=== PATIENT | male | born 1980 | race Caucasian/White ===

== ENCOUNTER 2016-08-31 16:26 | Emergency (ER) ==
[2016-08-31 16:36] VITALS: BP 130/78; TEMP 101.8; BMI 28.0
[2016-08-31] MEDS ORDERED: SODIUM CHLORIDE 1,000 ML IV STA (16:43)
[2016-08-31 16:51] LABS: BASOPHILS % (AUTO) 0.2 % (0.0-3.0); EOSINOPHILS % (AUTO) 0.3 % (0.0-7.0); HEMATOCRIT 45.6 % (42.0-52.0); HEMOGLOBIN 15.4 g/dl (14.0-18.0); IMMATURE GRANULOCYTE % (AUTO) 0.6 % (0.0-5.0); LYMPHOCYTES % (AUTO) 6.2 (10.0-50.0); MEAN CORPUSCULAR HEMOGLOBIN 30.3 pg (27.0-31.0); MEAN CORPUSCULAR HGB CONC 33.8 (31.8-35.4); MEAN CORPUSCULAR VOLUME 89.8 fl (80.0-94.0); MONOCYTES # (AUTO) 0.7 K/uL (0.4-2.0); MONOCYTES % (AUTO) 4.3 (0-10); NEUTROPHILS # (AUTO) 13.7 K/ul (2.0-6.9); NEUTROPHILS % (AUTO) 88.4; PLATELET COUNT 265 10^3/uL (140-440); RED BLOOD COUNT 5.08 10^6/ul (4.70-6.10); WHITE BLOOD COUNT 15.44 K/ul (4.2-10.2)
[2016-08-31 17:09] LABS: ALBUMIN/GLOBULIN RATIO 1.21; ANION GAP 14.6; BILIRUBIN,TOTAL 0.6 mg/dL (0.00-1.20); BUN/CREATININE RATIO 14.43; CALCIUM 9.1 mg/dL (8.2-10.2); CREATININE 0.97 mg/dL (0.60-1.10); POTASSIUM 3.6 mmol/L (3.5-5.1); TOTAL PROTEIN 7.3 g/dL (6.4-8.2)
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
[2016-08-31 17:47] LABS: FLU INTERNAL QC INTERNAL QC VALID; RAPID FLU A NEGATIVE (NEGATIVE); RAPID FLU B NEGATIVE (NEGATIVE)
== END 2016-08-31 18:40 | disposition home or self-care (01) ==
LOC: ED 16:26
DX: K52.9 Noninfective gastroenteritis and colitis, unspecified (principal); F17.210 Nicotine dependence, cigarettes, uncomplicated
CPT/HCPCS: 36415; 80053; 85025; 87651; 87804; 87880; 96360; 99283

== ENCOUNTER 2016-10-03 15:54 | Emergency (ER) ==
[2016-10-03 15:54] VITALS: BMI 28.0
[2016-10-03 15:56] VITALS: BP 144/94; TEMP 98.3
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
== END 2016-10-03 16:26 | disposition home or self-care (01) ==
LOC: ED 15:54
DX: K08.89 Other specified disorders of teeth and supporting structures (principal); K02.7 Dental root caries; F17.210 Nicotine dependence, cigarettes, uncomplicated
CPT/HCPCS: 99282

== ENCOUNTER 2016-10-17 15:28 | Emergency (ER) ==
[2016-10-17 15:33] VITALS: BP 128/85; TEMP 98.1; BMI 27.1
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
[2016-10-17 16:30] LABS: BASOPHILS # (AUTO) 0.1 K/uL (0-0.2); BASOPHILS % (AUTO) 0.7 % (0.0-3.0); EOSINOPHILS # (AUTO) 0.1 K/ul (0.0-0.7); HEMATOCRIT 43.9 % (42.0-52.0); HEMOGLOBIN 14.8 g/dl (14.0-18.0); IMMATURE GRANULOCYTE % (AUTO) 0.6 % (0.0-5.0); LYMPHOCYTES % (AUTO) 16.3 (10.0-50.0); MEAN CORPUSCULAR HEMOGLOBIN 30.1 pg (27.0-31.0); MEAN CORPUSCULAR HGB CONC 33.7 (31.8-35.4); MEAN CORPUSCULAR VOLUME 89.2 fl (80.0-94.0); MONOCYTES % (AUTO) 8.1 (0-10); NEUTROPHILS # (AUTO) 8.8 K/ul (2.0-6.9); NEUTROPHILS % (AUTO) 73.3; PLATELET COUNT 302 10^3/uL (140-440); RED BLOOD COUNT 4.92 10^6/ul (4.70-6.10); WHITE BLOOD COUNT 12.04 K/ul (4.2-10.2)
--- NOTE | 2016-10-17 16:31 | DI ---
Exam: Chest two-view HISTORY: Chest pain. Comparison: 08/24/2012. FINDINGS: Two rotated views of the chest demonstrate mildly expanded lungs with no evidence of pneu mothorax or edema. There is minimal opacity at the left lung base. The heart is normal in size and c onfiguration. The pulmonary vasculature is not congested. The skeletal structures are intact. IMPRESSION: Low inspiratory volumes with minimal left base atelectasis or pneumonia.
[2016-10-17 16:49] LABS: ALANINE AMINOTRANSFERASE 24 U/L (12-78); ALBUMIN/GLOBULIN RATIO 1.18; ALKALINE PHOSPHATASE 97 U/L (50-136); ANION GAP 13.8; ASPARTATE AMINO TRANSFERASE 17 U/L (15-37); BLOOD UREA NITROGEN 11 mg/dL (7-18); BUN/CREATININE RATIO 11.82; CALCIUM 9.6 mg/dL (8.2-10.2); CARBON DIOXIDE 24 mmol/L (21-32); CHLORIDE 106 mmol/L (98-107); CREATINE KINASE 94 U/L; CREATININE 0.93 mg/dL (0.60-1.10); GLUCOSE 86 mg/dL (70-100); POTASSIUM 3.8 mmol/L (3.5-5.1); SODIUM 140 mmol/L (136-145); TOTAL PROTEIN 7.4 g/dL (6.4-8.2)
== END 2016-10-17 17:23 | disposition home or self-care (01) ==
LOC: ED 15:28
DX: J18.1 Lobar pneumonia, unspecified organism (principal); R07.9 Chest pain, unspecified; Z72.0 Tobacco use
CPT/HCPCS: 36415; 80053; 82550; 84484; 85025; 93005; 93010; 99283

== ENCOUNTER 2016-12-12 15:38 | Outpatient (CLI) ==
[2016-12-12 16:21] LABS: BASOPHILS # (AUTO) 0.1 K/uL (0-0.2); BASOPHILS % (AUTO) 0.8 % (0.0-3.0); EOSINOPHILS # (AUTO) 0.1 K/ul (0.0-0.7); EOSINOPHILS % (AUTO) 1.5 % (0.0-7.0); HEMATOCRIT 43.1 % (42.0-52.0); HEMOGLOBIN 14.5 g/dl (14.0-18.0); IMMATURE GRANULOCYTE % (AUTO) 0.3 % (0.0-5.0); LYMPHOCYTES # (AUTO) 1.7 K/uL (0.60-3.4); LYMPHOCYTES % (AUTO) 22.4 (10.0-50.0); MEAN CORPUSCULAR HEMOGLOBIN 29.7 pg (27.0-31.0); MEAN CORPUSCULAR HGB CONC 33.6 (31.8-35.4); MEAN CORPUSCULAR VOLUME 88.1 fl (80.0-94.0); MONOCYTES # (AUTO) 0.7 K/uL (0.4-2.0); MONOCYTES % (AUTO) 8.9 (0-10); NEUTROPHILS # (AUTO) 5.2 K/ul (2.0-6.9); NEUTROPHILS % (AUTO) 66.1; PLATELET COUNT 279 10^3/uL (140-440); RED BLOOD COUNT 4.89 10^6/ul (4.70-6.10); WHITE BLOOD COUNT 7.78 K/ul (4.2-10.2)
[2016-12-12 16:49] LABS: ALBUMIN 3.9 g/dL (3.4-5.0); ALBUMIN/GLOBULIN RATIO 1.15; ANION GAP 15.9; BILIRUBIN,TOTAL 0.37 mg/dL (0.00-1.20); BUN/CREATININE RATIO 16.49; CALCIUM 9.2 mg/dL (8.2-10.2); CREATININE 0.97 mg/dL (0.60-1.10); POTASSIUM 3.9 mmol/L (3.5-5.1); TOTAL PROTEIN 7.3 g/dL (6.4-8.2)
== END 2016-12-12 15:39 | disposition home or self-care (01) ==
LOC: LAB 15:38
PROVIDERS: ATTEND Nurse Practitioner Family
DX: G44.89 Other headache syndrome (principal); R42 Dizziness and giddiness
CPT/HCPCS: 36415; 80053; 84443; 85025

== ENCOUNTER 2017-05-11 18:37 | Emergency (ER) ==
[2017-05-11 18:38] VITALS: BP 161/90; TEMP 98.4; BMI 30.9
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
== END 2017-05-11 19:01 | disposition home or self-care (01) ==
LOC: ED 18:37
DX: K08.89 Other specified disorders of teeth and supporting structures (principal); K02.7 Dental root caries; S02.5XXA Fracture of tooth (traumatic), initial encounter for closed fracture
CPT/HCPCS: 99282

== ENCOUNTER 2017-09-04 16:10 | Outpatient (CLI) | END 2017-09-04 16:11 | disposition home or self-care (01) | LOC: FCC-LAB 16:10 | PROVIDERS: ATTEND Nurse Practitioner Family | DX: N50.811 Right testicular pain (principal); N50.89 Other specified disorders of the male genital organs; R10.84 Generalized abdominal pain | CPT/HCPCS: 36415; 80053; 80074; 81001; 82150; 83690; 85025; 86592; 86701; 87800 ==

== ENCOUNTER 2017-09-07 10:15 | Outpatient (CLI) ==
--- NOTE | 2017-09-07 11:21 | US ---
Exam: Baez-scale and color Doppler ultrasonographic evaluation of the testicles and scrotum. Comparison: 05/14/2010. Reason for exam: Unspecified abnormality of genitalia FINDINGS: The right testicle measures approximately 5.27 x 2.95 x 3.49 cm with normal appearing echotexture and normal vascularity. No parenchymal mass lesion is seen in the right testicle. The right epididymis is unremarkable. The right scrotal wall measures 0.47 cm which is within normal limits. There is a small right-sided hydrocele. The left testicle measures approximately 4.58 x 2.69 x 3.76 cm with normal appearing echotexture and normal vascularity. The left epididymis appears grossly unremarkable. The left scrotal wall measures 0.47 cm. Impression: 1. No abnormal vascularity or parenchymal mass lesion is seen in the right or left testicle. 2. No evidence of torsion. 3. Small right-sided hydrocele.
== END 2017-09-07 10:16 | disposition home or self-care (01) ==
LOC: RAD 10:15
PROVIDERS: ATTEND Nurse Practitioner Family
DX: N50.811 Right testicular pain (principal); N50.89 Other specified disorders of the male genital organs

== ENCOUNTER 2017-09-11 09:45 | Outpatient (CLI) ==
--- NOTE | 2017-09-11 11:53 | NM ---
EXAM: Hepatobiliary imaging HISTORY: Right upper quadrant pain COMPARISON: None. TECHNIQUE: Patient was injected 5 mCi of technetium 99m Choletec intravenously. Multiple anterior sc intigraphic images of the right upper quadrant region of the abdomen were then obtained up to 1 hour interval. Patient was infused 1.9 mcg of Kinevac intravenously and gallbladder ejection fraction was calculated. FINDINGS: There is normal visualization of liver, gallbladder, bile duct and small bowel loops. Gall bladder ejection fraction is 17% which is abnormal. 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
--- NOTE | 2017-09-11 13:53 | DI ---
Exam: A x-rays of the cervical spine. Comparison: CT cervical spine performed 06/10/2014. Reason for exam: Cervicalgia. FINDINGS: No acute fracture or listhesis in the cervical spine. The vertebral body and intervertebr al body disc space heights are well maintained. The prevertebral soft tissues are within normal limi ts. No abnormal motion is seen with flexion or extension radiographs. The dens appears intact on th e open-mouth odontoid view. Impression: 1. No acute fracture or listhesis in the cervical spine. 2. No abnormal motion with flexion or extension
== END 2017-09-11 09:46 | disposition home or self-care (01) ==
LOC: RAD 09:45
PROVIDERS: ATTEND Nurse Practitioner Family
DX: R10.11 Right upper quadrant pain (principal); R74.8 Abnormal levels of other serum enzymes

== ENCOUNTER 2018-02-02 22:53 | Emergency (ER) ==
[2018-02-02 23:05] VITALS: BP 130/82; TEMP 97; BMI 28.0
[2018-02-02] MEDS ORDERED: PHENERGAN 25 MG/ML VIAL IM STA (23:08)
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
[2018-02-02] MEDS ORDERED: LACTATED RINGERS 1,000 ML IV STA (23:49)
[2018-02-03] MEDS ORDERED: MORPHINE 4 MG/ML VIAL IVP STA (00:31)
[2018-02-03] MEDS ORDERED: ZOFRAN 4 MG/2 ML IVP STA (00:31)
[2018-02-03] MEDS ORDERED: MORPHINE 4 MG/ML SYRINGE ONE (00:34)
--- NOTE | 2018-02-03 09:49 | CT ---
Exam: CT of the abdomen and pelvis without contrast History: Status post laparoscopic cholecystectomy with abdominal pain Technique: [address] of the abdomen and pelvis without intravascular contrast FINDINGS: Bilateral lower lung atelectasis. No significant liver abnormality. The adrenals, pancreas and spleen are unremarkable. The stomach and hiatus are unremarkable.Minor stranding in the cholecyst ectomy surgical bed. Trace free intraperitoneal gas. Kidneys and proximal collecting system are unre markable. Moderate right and transverse colonic stool retention. The appendix is not seen. Vascular structures appear normal by noncontrast CT. Pelvic genitourinary structures appear normal. Pelvic bowel loops are unremarkable. No inflammatory c hange in the pelvic fat. No acute abnormality of the abdominal or pelvic skeleton. Impression: 1. No inflammatory process, bowel or urinary obstruction is seen. 2. Recent prior cholecystectomy with expected postoperative findings. Minimal surgical bed strandin g and trace intraperitoneal gas.
== END 2018-02-03 01:05 | disposition home or self-care (01) ==
LOC: ED 22:53
DX: R11.2 Nausea with vomiting, unspecified (principal); R10.84 Generalized abdominal pain; G89.18 Other acute postprocedural pain; F17.210 Nicotine dependence, cigarettes, uncomplicated
CPT/HCPCS: 36415; 74176; 80053; 82150; 83605; 83690; 84145; 85025; 96361; 96372; 96374; 96375; 99283

== ENCOUNTER 2018-05-25 21:56 | Emergency (ER) ==
[2018-05-25 22:03] VITALS: BP 136/92; TEMP 98.8; BMI 27.1
--- NOTE | 2018-05-25 22:53 | DI ---
Exam: Left toes four views History: Toe injury Findings / impression: Four views including all five digits. No acute bony or articular abnormaliti es are seen. 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 Negative exam otherwise.
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
[2018-05-25] MEDS: NORCO 7.5-325 PO STA (23:26)
== END 2018-05-25 23:26 | disposition home or self-care (01) ==
LOC: ED 21:56
DX: S39.012A Strain of muscle, fascia and tendon of lower back, initial encounter (principal); S99.922A Unspecified injury of left foot, initial encounter; W00.0XXA Fall on same level due to ice and snow, initial encounter; F17.210 Nicotine dependence, cigarettes, uncomplicated
CPT/HCPCS: 99282

== ENCOUNTER 2018-06-07 07:40 | Outpatient (CLI) | END 2018-06-07 08:07 | disposition short-term general hospital (02) | LOC: AMBL 07:40 | PROVIDERS: ATTEND Internal Medicine | DX: M54.2 Cervicalgia (principal); M54.6 Pain in thoracic spine; S40.212A Abrasion of left shoulder, initial encounter; F15.182 Other stimulant abuse with stimulant-induced sleep disorder; R45.851 Suicidal ideations; R44.0 Auditory hallucinations; R44.1 Visual hallucinations ==

== ENCOUNTER 2018-06-18 18:26 | Emergency (ER) | payer OTHER ==
[2018-06-18 18:39] VITALS: BP 114/75; TEMP 103.5; BMI 25.7
[2018-06-18] MEDS ORDERED: MOTRIN PO STA (19:34)
--- NOTE | 2018-06-18 20:07 | DI ---
EXAM: Chest PA and lateral HISTORY: Cough FINDINGS: The lungs remain clear since 02/12/2018. The aorta is normal in caliber. The heart size i s normal. The bones are intact. No pneumothorax or pleural effusions are detected. IMPRESSION: No acute cardiopulmonary disease.
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
== END 2018-06-18 20:35 | disposition home or self-care (01) ==
LOC: ED 18:26
DX: J11.1 Influenza due to unidentified influenza virus with other respiratory manifestations (principal); F17.210 Nicotine dependence, cigarettes, uncomplicated
CPT/HCPCS: 36415; 80053; 83605; 84145; 85025; 87040; 87502; 87651; 99283

== ENCOUNTER 2018-06-28 12:45 | Emergency (ER) ==
[2018-06-28 12:54] VITALS: BP 140/84; TEMP 96.1; BMI 25.1
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
== END 2018-06-28 15:10 | disposition home or self-care (01) ==
LOC: ED 12:45
DX: F15.10 Other stimulant abuse, uncomplicated (principal); D64.9 Anemia, unspecified; F17.210 Nicotine dependence, cigarettes, uncomplicated
CPT/HCPCS: 36415; 80053; 80306; 80307; 81001; 85025; 93005; 93010; 99283

== ENCOUNTER 2018-07-14 18:05 | Emergency (ER) ==
[2018-07-14 18:06] VITALS: BMI 25.1
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
[2018-07-14] MEDS: ATIVAN IM STA (19:32)
[2018-07-14] MEDS: GEODON IM STA (19:34)
[2018-07-14] MEDS: SODIUM CHLORIDE 1,000 ML IV STA (20:05)
[2018-07-14] MEDS: ATIVAN IVP STA (20:41)
[2018-07-14] MEDS: ATIVAN ONE (20:59)
[2018-07-15] MEDS: SODIUM CHLORIDE 1,000 ML IV STA (04:23)
[2018-07-16] MEDS ORDERED: ROCEPHIN 1 GM in SODIUM CHLORIDE 50 ML IV STA (09:13)
[2018-07-16] MEDS: ROCEPHIN IM STA (10:27)
[2018-07-16] MEDS: ROCEPHIN ONE (10:35)
[2018-07-16] MEDS: LIDOCAINE HCL 1% SDV IM STA (10:35)
[2018-07-16] MEDS: BENADRYL PO STA ×2 (21:16)
[2018-07-17 06:06] VITALS: BP 125/80; TEMP 97.7
== END 2018-07-17 11:20 | disposition home or self-care (01) ==
LOC: ED 18:05
DX: F15.10 Other stimulant abuse, uncomplicated (principal); R45.851 Suicidal ideations; R44.3 Hallucinations, unspecified; R07.9 Chest pain, unspecified; F17.210 Nicotine dependence, cigarettes, uncomplicated
CPT/HCPCS: 36415; 80053; 80306; 80307; 81001; 82550; 82553; 84484; 85025; 87502; 93005; 93010; 96361; 96372; 96374; 99285

== ENCOUNTER 2018-07-28 00:37 | Emergency (ER) ==
[2018-07-28 00:38] VITALS: BMI 25.1
[2018-07-28 00:46] VITALS: TEMP 98
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
[2018-07-28 00:55] VITALS: BP 137/91
== END 2018-07-28 01:00 | disposition home or self-care (01) ==
LOC: ED 00:37
DX: F15.10 Other stimulant abuse, uncomplicated (principal); F17.210 Nicotine dependence, cigarettes, uncomplicated
CPT/HCPCS: 99282

== ENCOUNTER 2018-08-01 17:10 | Outpatient (CLI) ==
[2018-08-01 17:39] VITALS: BMI 25.1
== END 2018-08-01 17:15 | disposition critical access hospital (66) ==
LOC: AMBL 17:10
PROVIDERS: ATTEND Internal Medicine
DX: T43.621A Poisoning by amphetamines, accidental (unintentional), initial encounter (principal); R07.9 Chest pain, unspecified; R00.0 Tachycardia, unspecified

== ENCOUNTER 2018-08-01 17:38 | Emergency (ER) ==
[2018-08-01 17:39] VITALS: BMI 25.1
[2018-08-01 17:46] VITALS: BP 141/90; TEMP 97.7
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
[2018-08-01] MEDS ORDERED: SODIUM CHLORIDE 1,000 ML IV STA (18:04)
[2018-08-01] MEDS ORDERED: THIAMINE 100 MG, INFUVITE ADULT 10 ML, FOLIC ACID 1 MG in DEXTROSE 5%-NS IV SOLUTION 1,... IV SCH (19:00)
== END 2018-08-01 23:35 | disposition home or self-care (01) ==
LOC: ED 17:38
DX: T43.621A Poisoning by amphetamines, accidental (unintentional), initial encounter (principal); F17.210 Nicotine dependence, cigarettes, uncomplicated
CPT/HCPCS: 36415; 80053; 82550; 82553; 85025; 93005; 93010; 96360; 99284

== ENCOUNTER 2018-09-20 23:37 | Outpatient (CLI) | END 2018-09-20 23:55 | disposition short-term general hospital (02) | LOC: AMBL 23:37 | PROVIDERS: ATTEND Emergency Medicine | DX: R56.9 Unspecified convulsions (principal); R00.0 Tachycardia, unspecified; F15.10 Other stimulant abuse, uncomplicated ==

== ENCOUNTER 2018-09-28 00:33 | Emergency (ER) ==
[2018-09-28 00:42] VITALS: BP 136/81; TEMP 98.2; BMI 25.3
[2018-09-28] MEDS ORDERED: DECADRON 4 MG/ML SDV IM STA (00:47)
[2018-09-28] MEDS ORDERED: NORCO 7.5-325 PO STA (00:48)
--- NOTE | 2018-09-28 01:10 | CT ---
EXAM: CT scan brain without contrast HISTORY: Headache COMPARISON: CT scan brain 06/10/2014 FINDINGS: Contiguous axial images obtained from the skull base to the convexities without contrast r ising 5-mm collimation. Sagittal and coronal reconstructions were imaged and reviewed.. The ventric les and CSF spaces are within normal limits. There are no acute intracranial findings. Several air cells are opacified in both ethmoid sinus. There is opacification of the right frontal sinus. Masto id air cells are clear. IMPRESSION: No acute and other findings Benign sinus.
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
== END 2018-09-28 04:43 | disposition home or self-care (01) ==
LOC: ED 00:33
DX: G44.209 Tension-type headache, unspecified, not intractable (principal); M79.643 Pain in unspecified hand; F17.210 Nicotine dependence, cigarettes, uncomplicated
CPT/HCPCS: 36415; 80053; 81001; 85025; 85651; 99282

== ENCOUNTER 2018-11-12 05:07 | Emergency (ER) ==
[2018-11-12 05:16] VITALS: BP 125/89; TEMP 99; BMI 23.8
--- NOTE | 2018-11-12 05:47 | ED.PDOC ---
General ED Provider: Dr. BECKY OLIVA Chief Complaint: Tooth Problem Stated Complaint: History of dental pain with worse pain starting yesterday. Took aspirin last night. Woke up with severe pain. Has a history of smoking but quit. Time Seen by Physician: 05:39 Mode of Arrival: Walk-In Information Source: Patient Nursing and Triage Documentation Reviewed and Agree: Yes Does patient meet sepsis criteria?: No System Inflammatory Response Syndrome: Not Applicable Sepsis Protocol: For patient's 13 years and over: Temp is 96.8 and below OR 101 and greater Pulse >90 BPM Resp >20/minute Acutely Altered Mental Status Are patient's symptoms suggestive of a new infection, such as: -Pneumonia -Skin, Soft Tissue -Endocarditis -UTI -Bone, Joint Infection -Implantable Device -Acute Abdominal Infection -Wound Infection -Meningitis -Blood Stream Catheter Infection -Unknown EENT Complaint Exam - Dental/Oral Complaint/Exam Mechanism of Injury: No known trauma Onset/Duration: 1 day Symptoms Are: Still present Timing: Constant Initial Severity: Severe Current Severity: Severe Location: whole mouth Character: Reports: Dull, Aching, Throbbing Aggravating: Reports: Cold Alleviating: Reports: None Associated Signs and Symptoms: Reports: Swelling, Discharge, Foul odor, Foul taste in mouth Related History: Reports: Similar episode, Previous tooth problem, Third molars present Cardiac Risk Factors: Reports: None Tooth Findings: Present: Gross decay, Gross caries, Dental fracture, Abcess Cervical Lymphadenopathy Present: No Facial Swelling Present: No Bleeding Present: No Oropharynx Findings: Absent: Clots, Active bleeding Septal Hematoma: No Foreign Body Present: No Dysphagia Present: No Drooling Present: No Asymmetrical Tonsillar Swelling Present: No Uvula Midline: Yes Dary-tonsillar Fluctuence: No Trismus Present: No Palatal Petechiae Present: No Scarlatinaform Rash Present: No Teeth Picture: 1 - diffuse dental caries with some abcess Differential Diagnoses: Dental Abcess, Dental Caries Review of Systems - Review Of Systems Constitutional: Reports: No symptoms Eyes: Reports: No symptoms Ears, Nose, Mouth, Throat: Reports: Mouth pain Respiratory: Reports: No symptoms Cardiac: Reports: Lightheadedness GI: Reports: No symptoms : Reports: No symptoms Musculoskeletal: Reports: No symptoms Skin: Reports: No symptoms Neurological: Reports: Anxiety Endocrine: Reports: No symptoms Hematologic/Lymphatic: Reports: No symptoms All Other Systems: Reviewed and Negative Past Medical History - Past Medical History Previously Healthy: Yes Endocrine: Reports: None Cardiovascular: Reports: None Respiratory: Reports: None Hematological: Reports: None Gastrointestinal: Reports: None Genitourinary: Reports: Kidney stones Neuro/Psych: Reports: Migraine, Seizure, Anxiety, Depression Musculoskeletal: Reports: None Cancer: Reports: None Other Pertinent Past Medical History: pneumothorax 2006 - Surgical History General Surgical History: Reports: Appendectomy, Cholecystectomy, Other ( Fractured vertebra) - Family History Family History: Reports: Unknown - Social History Smoking Status: Former smoker, Light tobacco smoker Hx Substance Use: Yes (marijuana, METH) Alcohol Screening: None - Immunizations Tetanus Shot up to Date: Yes Physical Exam - Physical Exam Appearance: Well-appearing Pain Distress: Severe Eyes: SALOMÓN, EOMI, Conjunctiva clear Neck: Supple Respiratory: Airway patent, Breath sounds clear, Breath sounds equal, Respirations nonlabored Cardiovascular: Tachycardia Musculoskeletal: Normal strength, ROM intact, No edema, No calf tenderness Skin: Warm, Dry, Normal color Neurological: Alert, Oriented Psychiatric: Anxious Critical Care Note - Critical Care Note Total Time (mins): 0 Course - Course Vital Signs: Temp Pulse Resp BP Pulse Ox 11/12/18 05:07 99 F 119 H 20 125/89 96 Departure - Departure Time of Disposition: 06:15 Disposition: HOME SELF-CARE Discharge Problem: History of methamphetamine abuse, Infected dental caries, Pain, dental, Trench mouth Instructions: Toothache (ED), Dental Abscess (ED), Trench Mouth (ED) Condition: Good Pt referred to PMD for follow-up: Yes IPMP verified?: No Additional Instructions: Take Medications as prescribed Follow up with you dentist for oral surgery Prescriptions: Amoxicillin [Amoxil] 500 mg PO TID #30 capsule Ibuprofen [Motrin] 600 mg PO Q6H PRN #30 tablet PRN Reason: Analgesia Tramadol HCl 50 mg PO TID PRN #10 tablet PRN Reason: severe pain Allergies/Adverse Reactions: Allergies doxycycline Allergy (Verified 09/28/18 01:33) Difficulty Breathing codeine Adverse Reaction (Verified 11/12/18 05:17) Rash Home Medications: Ambulatory Orders Lorazepam 1 mg PO BEDTIME 06/28/18 Trazodone HCl 150 mg PO BEDTIME 06/28/18 Vit B Comp/C/Folic/Iron/Vit E [Vitamin B Complex Tablet] 1 each PO DAILY Amoxicillin [Amoxil] 500 mg PO TID #30 capsule 11/12/18 Ibuprofen [Motrin] 600 mg PO Q6H PRN #30 tablet 11/12/18 Tramadol HCl 50 mg PO TID PRN #10 tablet 11/12/18 Transfer Form Completed: Yes Disposition Discussed With: Patient
[2018-11-12] MEDS ORDERED: MOTRIN PO STA (05:53)
[2018-11-12] MEDS ORDERED: AMOXIL PO STA (05:53)
== END 2018-11-12 06:20 | disposition home or self-care (01) ==
LOC: ED 05:07
DX: K08.89 Other specified disorders of teeth and supporting structures (principal); K02.7 Dental root caries; A69.1 Other Vincent's infections; F15.10 Other stimulant abuse, uncomplicated; S02.5XXA Fracture of tooth (traumatic), initial encounter for closed fracture; K04.7 Periapical abscess without sinus; R00.0 Tachycardia, unspecified
CPT/HCPCS: 99282

== ENCOUNTER 2018-11-15 08:18 | Emergency (ER) ==
[2018-11-15 08:23] VITALS: BP 137/94; TEMP 97; BMI 24.1
[2018-11-15] MEDS ORDERED: DILANTIN PO STA (09:23)
--- NOTE | 2018-11-15 11:39 | ED.PDOC ---
General ED Provider: Dr. MARY MORALES Chief Complaint: Psychiatric Complaint Stated Complaint: suicidal ideation with knife . he stated he was going to use a huge knife and stab himself in the chest. ADMITTS TO HAVE TAKEN METH BY MOUTH AMOUNT OF INGESTION NOT DISCLOSED . Time Seen by Physician: 08:18 Mode of Arrival: Walk-In Information Source: Patient Exam Limitations: No limitations Nursing and Triage Documentation Reviewed and Agree: Yes Does patient meet sepsis criteria?: No System Inflammatory Response Syndrome: Not Applicable Sepsis Protocol: For patient's 13 years and over: Temp is 96.8 and below OR 101 and greater Pulse >90 BPM Resp >20/minute Acutely Altered Mental Status Are patient's symptoms suggestive of a new infection, such as: -Pneumonia -Skin, Soft Tissue -Endocarditis -UTI -Bone, Joint Infection -Implantable Device -Acute Abdominal Infection -Wound Infection -Meningitis -Blood Stream Catheter Infection -Unknown Psychological Complaint Exam - Psychiatric Complaint/Exam Patient Complains Of: Present: Depression, Suicidal thoughts, Suicidal gestures , Other (with a knife ) Onset/Duration: today Symptoms Are: Still present Timing: Constant Initial Severity: Severe Current Severity: Severe Character: Present: Depressed, Fearful, Anxious, Angry, Frustrated Aggravating: Reports: Recent stress Associated Signs And Symptoms: Reports: Hostile, Sleep disturbance, Appetite change. Denies: Confused, Hallucinating, Paranoid behavior Related History: Reports: Suicidal thoughts, Suicidal plan, Suicidal gestures. Denies: Homicidal thoughts, Homicidal plan, Homicidal gestures, Prior attempts, Recent stressors Completed Suicide Risk Factors: None Patient Accompanied By: Police Patient In Custody Of Police: Yes Social Withdrawal Present: No Social Isolation Present: No Prior Suicide Attempt: No Injury From Prior Suicide Attempt: No Related Surgical History: Reports: None Patient Uncooperative For Exam: No Mood: Present: Agitated, Anxious Appearance: Present: Clean, Unkempt Thought Process: Present: Illogical Insight: Present: Poor Memory: Impaired Judgement: Impaired Danger To Others: No Patient Medically Stable For: Psych evaluation Differential Diagnoses: Depression, Suicidal Ideation, Suicidal Gesture Review of Systems - Review Of Systems Constitutional: Reports: No symptoms Eyes: Reports: No symptoms Ears, Nose, Mouth, Throat: Reports: No symptoms Respiratory: Reports: No symptoms Cardiac: Reports: No symptoms GI: Reports: No symptoms : Reports: No symptoms Musculoskeletal: Reports: No symptoms Skin: Reports: No symptoms Neurological: Reports: Emotional problems Endocrine: Reports: No symptoms Hematologic/Lymphatic: Reports: No symptoms All Other Systems: Reviewed and Negative Past Medical History - Past Medical History Previously Healthy: Yes Endocrine: Reports: None Cardiovascular: Reports: None Respiratory: Reports: None Hematological: Reports: None Gastrointestinal: Reports: None Genitourinary: Reports: Kidney stones Neuro/Psych: Reports: Migraine, Seizure, Anxiety, Depression Musculoskeletal: Reports: None Cancer: Reports: None Other Pertinent Past Medical History: pneumothorax 2006 - Surgical History General Surgical History: Reports: Appendectomy, Cholecystectomy, Other ( Fractured vertebra) - Family History Family History: Reports: Unknown - Social History Smoking Status: Former smoker, Light tobacco smoker Hx Substance Use: Yes (marijuana, METH) Alcohol Screening: None Physical Exam - Physical Exam Appearance: Well-appearing, No pain distress, Well-nourished Eyes: SALOMÓN, EOMI, Conjunctiva clear ENT: Ears normal, Nose normal, Oropharynx normal Respiratory: Airway patent, Breath sounds clear, Breath sounds equal, Respirations nonlabored Cardiovascular: RRR, Pulses normal, No rub, No murmur GI/: Soft, Nontender, No masses, Bowel sounds normal, No Organomegaly Musculoskeletal: Normal strength, ROM intact, No edema, No calf tenderness Skin: Warm, Dry, Normal color Neurological: Sensation intact, Motor intact, Reflexes intact, Cranial nerves intact, Alert, Oriented Psychiatric: Affect appropriate, Mood appropriate Critical Care Note - Critical Care Note Total Time (mins): 0 Course - Course Hematology/Chemistry: 11/15/18 08:44 11/15/18 08:44 Orders, Labs, Meds: Lab Review 11/15/18 11/15/18 11/15/18 08:44 08:44 08:44 WBC 7.63 RBC 4.22 L Hgb 12.6 L Hct 39.2 L MCV 92.9 MCH 29.9 MCHC 32.1 RDW Coeff of Prashant 13.7 Plt Count 293 Immature Gran % (Auto) 0.3 Neut % (Auto) 69.3 Lymph % (Auto) 17.7 [place] % (Auto) 10.1 H Eos % (Auto) 2.1 Baso % (Auto) 0.5 Immature Gran # (Auto) 0.0 Neut # (Auto) 5.3 Lymph # (Auto) 1.4 [place] # (Auto) 0.8 Eos # (Auto) 0.2 Baso # (Auto) 0.0 Sodium 139.7 Potassium 3.80 Chloride 101.0 Carbon Dioxide 27.3 Anion Gap 15.20 BUN 14.8 Creatinine 0.88 Estimated GFR (MDRD) 97.00 BUN/Creatinine Ratio 16.81 Glucose 102.7 Calcium 9.13 Total Bilirubin 0.69 AST 28.8 ALT 23.8 Alkaline Phosphatase 93.2 Total Protein 7.42 Albumin 4.48 Globulin 2.94 Albumin/Globulin Ratio 1.52 TSH 0.723 Urine Color Urine Clarity Urine pH Ur Specific Baxter Urine Protein Urine Glucose (UA) Urine Ketones Urine Blood Urine Nitrite Urine Bilirubin Urine Urobilinogen Ur Leukocyte Esterase Ur Squamous Epith Cells Urine Mucus Urine Sperm Salicylate Level mg/dL < 1.00 Urine Opiates Screen Ur Oxycodone Screen Urine Methadone Screen Ur Propoxyphene Screen Acetaminophen < 10.0 L Ur Barbiturates Screen Phenytoin < 3.00 L U Tricyclic Antidepress Ur Phencyclidine Scrn Ur Amphetamine Screen U Methamphetamines Scrn U Benzodiazepines Scrn Urine Cocaine Screen U Cannabinoids Screen Plasma/Serum Alcohol < 10.0 11/15/18 11/15/18 09:15 09:23 WBC RBC Hgb Hct MCV MCH MCHC RDW Coeff of Prashant Plt Count Immature Gran % (Auto) Neut % (Auto) Lymph % (Auto) [place] % (Auto) Eos % (Auto) Baso % (Auto) Immature Gran # (Auto) Neut # (Auto) Lymph # (Auto) [place] # (Auto) Eos # (Auto) Baso # (Auto) Sodium Potassium Chloride Carbon Dioxide Anion Gap BUN Creatinine Estimated GFR (MDRD) BUN/Creatinine Ratio Glucose Calcium Total Bilirubin AST ALT Alkaline Phosphatase Total Protein Albumin Globulin Albumin/Globulin Ratio TSH Urine Color Yellow Urine Clarity Clear Urine pH 5.0 Ur Specific Baxter >=1.030 Urine Protein 1+ Urine Glucose (UA) Negative Urine Ketones Trace Urine Blood Negative Urine Nitrite Negative Urine Bilirubin 1+ Urine Urobilinogen 1.0 Ur Leukocyte Esterase Negative Ur Squamous Epith Cells 0-2 Urine Mucus 1+ Urine Sperm 1+ Salicylate Level mg/dL Urine Opiates Screen Negative Ur Oxycodone Screen Negative Urine Methadone Screen Negative Ur Propoxyphene Screen Negative Acetaminophen Ur Barbiturates Screen Positive Phenytoin U Tricyclic Antidepress Negative Ur Phencyclidine Scrn Negative Ur Amphetamine Screen Positive U Methamphetamines Scrn Positive U Benzodiazepines Scrn Negative Urine Cocaine Screen Negative U Cannabinoids Screen Positive Plasma/Serum Alcohol Orders Category Date Time Status EKG-(ED ONLY) Stat CARDIO 11/15/18 08:34 Completed Mental Health Consult [ED MENTAL HEALTH CONSULT] .ONCE EMERGENCY 11/15/18 10: 31 Active ACETAMINOPHEN Stat LAB 11/15/18 08:44 Completed BLOOD ALCOHOL Stat LAB 11/15/18 08:44 Completed CBC W/ AUTO DIFF Stat LAB 11/15/18 08:44 Completed COMPREHENSIVE METABOLIC PANEL Stat LAB 11/15/18 08:44 Completed DILANTIN LEVEL [PHENYTOIN (DILANTIN)] Stat LAB 11/15/18 08:44 Completed DRUG SCREEN, URINE, RAPID Stat LAB 11/15/18 09:15 Completed SALICYLATE Stat LAB 11/15/18 08:44 Completed THYROID STIMULATING HORMONE Stat LAB 11/15/18 08:44 Completed URINALYSIS C & S IF INDICATED Stat LAB 11/15/18 09:23 Completed Phenytoin Cap [Dilantin] MEDS 11/15/18 09:23 Discontinued 1,000 mg PO ONCE STA ANKLE, RIGHT MIN 3 VIEWS Stat RADS 11/15/18 15:45 Completed FOOT, RIGHT 3 VIEWS Stat RADS 11/15/18 15:45 Completed Medications Discontinued Medications Generic Name Dose Route Start Last Admin Trade Name Freq PRN Reason Stop Dose Admin Phenytoin Sodium 1,000 mg 11/15/18 09:23 11/15/18 09:48 Dilantin PO 11/15/18 09:24 1,000 mg ONCE STA Administration Vital Signs: Temp Pulse Resp BP Pulse Ox 11/15/18 08:18 97.0 F L 71 20 137/94 H 100 Departure - Departure Time of Disposition: 16:30 (denied being suicidal mental health worker signed a contract with the pt ) Disposition: HOME SELF-CARE Discharge Problem: Medical clearance for psychiatric admission Instructions: Depression (ED), Help Prevent Suicide (ED) Condition: Good Pt referred to PMD for follow-up: Yes IPMP verified?: No Additional Instructions: Please call your Family Physician as soon as possible to schedule a follow-up appointment. Allergies/Adverse Reactions: Allergies doxycycline Allergy (Verified 11/15/18 08:23) Difficulty Breathing codeine Adverse Reaction (Verified 11/15/18 08:23) Rash Home Medications: Ambulatory Orders Lorazepam 1 mg PO BEDTIME 06/28/18 Trazodone HCl 150 mg PO BEDTIME 06/28/18 Vit B Comp/C/Folic/Iron/Vit E [Vitamin B Complex Tablet] 1 each PO DAILY Ibuprofen [Motrin] 600 mg PO Q6H PRN #30 tablet 11/12/18 Tramadol HCl 50 mg PO TID PRN #10 tablet 11/12/18 Phenytoin Cap [Dilantin] 100 mg PO TID 11/15/18 Disposition Discussed With: Patient
--- NOTE | 2018-11-15 16:22 | DI ---
EXAM: Right foot three views HISTORY: Right foot pain COMPARISON: None FINDINGS: No fracture or dislocation. Joint spaces maintained. Small plantar calcaneal spur. No foc al soft tissue abnormality. IMPERSSION: 1. No fracture or dislocation. 2. Small calcaneal spur
--- NOTE | 2018-11-15 16:22 | DI ---
EXAM: Right ankle. Three-view HISTORY: Right ankle pain COMPARISON: None FINDINGS: No fracture or dislocation. Small plantar calcaneal spur. Ankle mortise is symmetric. No focal soft tissue abnormality. IMPERSSION: 1. No fracture or dislocation. 2. Small calcaneal spur
== END 2018-11-15 16:45 | disposition home or self-care (01) ==
LOC: ED 08:18
DX: R45.851 Suicidal ideations (principal); F15.10 Other stimulant abuse, uncomplicated; F17.210 Nicotine dependence, cigarettes, uncomplicated; F32.9 Major depressive disorder, single episode, unspecified
CPT/HCPCS: 36415; 80053; 80185; 80306; 80307; 81001; 84443; 85025; 93005; 93010; 99284

== ENCOUNTER 2018-11-16 21:28 | Outpatient (CLI) ==
[2018-11-15 08:23] VITALS: BMI 24.1
== END 2018-11-16 21:44 | disposition short-term general hospital (02) ==
LOC: AMBL 21:28
PROVIDERS: ATTEND Family Medicine
DX: M79.642 Pain in left hand (principal); F15.10 Other stimulant abuse, uncomplicated; F99 Mental disorder, not otherwise specified

== ENCOUNTER 2019-01-02 07:08 | Emergency (ER) ==
[2019-01-02 07:18] VITALS: BP 134/81; TEMP 98.4; BMI 25.8
[2019-01-02] MEDS ORDERED: TYLENOL PO STA (07:54)
--- NOTE | 2019-01-02 08:46 | CT ---
EXAM: CT head without contrast HISTORY: Trauma COMPARISON: CT head 09/28/2018 and multiple priors TECHNIQUE: Serial axial images of the brain were obtained from the skull base to the vertex without IV contrast. FINDINGS: The ventricles, cisterns and sulci are normal. The perez-white matter junction is maintain ed. No midline shift or mass is identified. There is no abnormal intra or extra-axial fluid collect ion. The paranasal sinuses demonstrate scattered paranasal sinus mucosal thickening. The mastoid ai r cells are clear. The osseous calvarium is intact. IMPRESSION: No acute intracranial abnormality or hemorrhage. Scattered paranasal sinus disease.
--- NOTE | 2019-01-02 08:50 | CT ---
EXAM: CT of the cervical spine without contrast History: Head and neck trauma. Technique: Multiplanar CT images through the cervical spine were obtained without the administration of IV contrast Findings: The visualized upper lungs are clear. The visualized airway remains patent. Mucosal thic kening and fluid seen within the bilateral maxillary sinuses. No acute fracture or subluxation of the cervical spine. No prevertebral soft tissue swelling. Prede ntal space is not widened. Disc space heights are relatively preserved. Bony spinal canal is not si gnificantly compromised. No significant bony neural foraminal narrowing. Impression: 1. No acute osseous abnormality of the cervical spine. 2. Bilateral maxillary sinusitis
--- NOTE | 2019-01-02 08:51 | CT ---
EXAM: CT of the chest without contrast History: Chest trauma and left rib pain. Technique: Multiplanar CT images through the thorax were obtained without the administration of IV c ontrast Findings: There is some motion artifact. Heart size is normal. No pericardial effusion. No thorac ic aortic aneurysm. No pathologically enlarged thoracic lymph nodes. No consolidation. No pleural fluid and no pneumothorax. No suspicious lung masses or lung nodules. For details in the upper abdomen, please see dedicated CT abdomen pelvis done on the same day. The m otion artifact limits evaluation for rib fractures. The ribs that are not affected by motion artifac t are normal. Impression: No acute traumatic injury identified within the thorax. Examination is somewhat comprom ised due to motion artifact.
--- NOTE | 2019-01-02 08:59 | DI ---
EXAM: Three views of the right ankle. History: Right ankle trauma. Findings: No acute fracture or dislocation. No abnormal calcifications or radiopaque foreign bodies . There is some edema within Kager's fat pad. Joint spaces are preserved. Questionable soft tissue air and laceration involving the lateral malleolus. Impression: No acute osseous abnormality
--- NOTE | 2019-01-02 09:01 | DI ---
EXAM: Three views of the left wrist. History: Left wrist trauma. Findings: No acute fracture or dislocation. No abnormal calcifications or radiopaque foreign bodies . Joint spaces are preserved. Impression: No acute osseous abnormality
--- NOTE | 2019-01-02 09:03 | DI ---
EXAM: Three views of the left hand. History: Left hand pain and trauma. Findings: No acute fracture or dislocation. Joint spaces are relatively preserved. 3 mm radiodensi ty seen projecting within the soft tissues adjacent to the fifth metacarpal neck. Impression: 1. No acute osseous abnormality. 2. 3 mm nonspecific radiodensity seen projecting within the soft tissues adjacent to the fifth metac arpal neck could represent incidental soft tissue calcification or retained foreign body. Recommend clinical correlation
[2019-01-02] MEDS ORDERED: LIDOCAINE HCL 1% SDV SUBCUT STA (09:14)
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
== END 2019-01-02 09:38 | disposition home or self-care (01) ==
LOC: ED 07:08
DX: S91.011A Laceration without foreign body, right ankle, initial encounter (principal); S09.90XA Unspecified injury of head, initial encounter; S29.9XXA Unspecified injury of thorax, initial encounter; V09.20XA Pedestrian injured in traffic accident involving unspecified motor vehicles, initial encounter; F17.210 Nicotine dependence, cigarettes, uncomplicated
CPT/HCPCS: 99283

== ENCOUNTER 2019-01-05 15:49 | Emergency (ER) ==
[2019-01-05 15:57] VITALS: BP 126/80; TEMP 97.4; BMI 24.7
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
== END 2019-01-05 19:19 | disposition home or self-care (01) ==
LOC: ED 15:49
DX: F15.20 Other stimulant dependence, uncomplicated (principal); F17.210 Nicotine dependence, cigarettes, uncomplicated
CPT/HCPCS: 99282